=== PATIENT | male | born 1995 | race Caucasian/White ===

== ENCOUNTER 2016-12-25 17:27 | Emergency (ER) | payer OTHER ==
[~2016-12-25] VITALS: Ht 190.5 cm; Wt 85.0 kg
[2016-12-25 17:29] VITALS: BP 133/75; TEMP 97.8
[2016-12-25] MEDS ORDERED: ALLEGRA 60MG TA60 MG PO (17:33)
[2016-12-25 18:34] VITALS: PULSE 80
== END 2016-12-25 18:35 | disposition home or self-care (01) ==
LOC: COL.ER 17:27
DX: T21.13XA Burn of first degree of upper back, initial encounter (principal); W93.8XXA Exposure to other excessive cold of man-made origin, initial encounter